=== PATIENT | male | born 1955 | race African-American/Black ===

== ENCOUNTER 2022-10-22 08:31 | Inpatient (IN) | payer MEDICARE ==
[2022-10-22] MEDS ORDERED: Amlodipine 5 MG TAB ONE (08:57)
[2022-10-22] MEDS ORDERED: hydrALAZINE 20 MG/ML VIAL ONE (08:57)
[2022-10-22] MEDS ORDERED: Aspirin Chewable 81 MG TAB ONE (08:57)
[2022-10-22 09:06] LABS: #Monocytes 0.5 thou/uL (0.11-0.59); #Neutrophils 3.2 thou/uL (1.40-6.50); %Basophils 0.7 % (0.0-1.0); %Eosinophils 0.5 % (0.0-10.0); %Lymphocytes 37.3 % (21.0-51.0); %Monocytes 7.8 % (0.0-10.0); %Neutrophils 52.7 % (42.0-75.0); Hematocrit 37.2 % (42.0-52.0); Hemoglobin 12.2 g/dL (14.0-18.0); Mean Corpuscular HGB CONC 32.8 g/dL (32.0-36.0); Mean Corpuscular Hemoglobin 31.4 pg (27.0-31.0); Mean Corpuscular Volume 95.9 fl (78.0-98.0); Mean Platelet Volume 9.5 fL (7.4-10.4); Platelet Count 301 10x3/uL (130-400); RBC Distribution Width 14.4 % (11.5-14.5); Red Blood Cell (RBC) Count 3.88 mill/uL (4.70-6.10)
[2022-10-22] MEDS ORDERED: Carvedilol 25 MG TAB PO SCH (09:15)
[2022-10-22 09:28] LABS: ALT (SGPT) Less than 7 U/L (8-55); AST (SGOT) 11 U/L (5-34); Albumin 3.9 g/dL (3.4-4.8); Alkaline Phosphatase 81 U/L (40-110); Anion Gap 13 mmol/L (10-20); BUN (Urea Nitrogen) 15 mg/dL (8.4-25.7); Bilirubin, Total 0.6 mg/dL (0.2-1.2); Calc. Creatinine Clearance 0 mL/min (70-130); Calcium 9.4 mg/dL (7.8-10.44); Carbon Dioxide 26 mmol/L (23-31); Chloride 105 mmol/L (98-107); Estimated GFR 33; Globulin 3.7 g/dL (2.4-3.5); Glucose 99 mg/dL (80-115); Lipase 12 U/L (8-78); Potassium 3.5 mmol/L (3.5-5.1); Protein, Total 7.6 g/dL (5.8-8.1); Sodium 140 mmol/L (136-145)
[2022-10-22 09:32] LABS: Troponin I 0.098 ng/mL (< 0.028)
[2022-10-22] MEDS ORDERED: Iopamidol-370 76% 500 ML MDV (1 ML CHARGE) ONE (10:07)
[2022-10-22] MEDS ORDERED: Nitroglycerin 0.4 MG TAB (25 Tab Bottle) SL PRN (10:41)
[2022-10-22] MEDS ORDERED: Sodium Chloride 0.9% 1,000 ML IV SCH ×2 (10:45→18:45)
[2022-10-22] MEDS ORDERED: Nitroglycerin 0.4 MG TAB 1 EACH ONE ×2 (11:13→11:30)
[2022-10-22] MEDS ORDERED: Nitroglycerin 2% Ointment 1 INCH/1 GM Packet ONE (11:32)
[2022-10-22] MEDS ORDERED: Labetalol HCl 100 MG/20 ML VIAL SLOW IVP PRN (11:42)
[2022-10-22] MEDS ORDERED: Heparin 25,000 units/D5W 500 ML IVPB SCH (12:15)
[2022-10-22 12:42] LABS: PTT 37.8 sec (22.9-36.1); Prothrombin Time 14.1 sec (12.0-14.7)
[2022-10-22] MEDS ORDERED: Nitroglycerin 2% Ointment 1 INCH/1 GM Packet TOP SCH (14:00)
[2022-10-22] MEDS ORDERED: Heparin 25,000 units/D5W 500 ML ONE (14:08)
[2022-10-22] MEDS: Heparin 10,000 UNITS/ 10 ML VIAL SLOW IVP SCH ×2 (14:15→22:22)
[2022-10-22] MEDS ORDERED: hydrALAZINE 25 MG TAB PO SCH (15:00)
[2022-10-22] MEDS ORDERED: Heparin 5,000 UNITS/ML VIAL SC SCH (15:00)
[2022-10-22 15:40] LABS: Troponin I 0.077 ng/mL (< 0.028)
[2022-10-22] MEDS ORDERED: hydrALAZINE 25 MG TAB ONE (17:25)
[2022-10-22] MEDS: hydrALAZINE 25 MG TAB PO SCH ×2 (17:36→20:14)
[2022-10-22 18:42] VITALS: BMI 26.9
[2022-10-22] MEDS ORDERED: Communication Order-Pharmacy FS SCH (19:00)
[2022-10-22] MEDS: Carvedilol 25 MG TAB PO SCH (19:51)
[2022-10-22] MEDS: Simvastatin 10 MG TAB PO SCH ×2 (20:14→20:17)
[2022-10-22] MEDS: Amlodipine 5 MG TAB PO SCH (20:15)
[2022-10-22] MEDS ORDERED: tiZANidine HCl 4 MG TAB PO SCH (21:00)
[2022-10-22] MEDS ORDERED: Acetaminophen 500 MG TAB PO SCH (21:00)
[2022-10-23] MEDS ORDERED: Acetaminophen 325 MG TAB PO PRN (01:00)
[2022-10-23 03:22] LABS: #Monocytes 0.5 thou/uL (0.11-0.59); #Neutrophils 5.9 thou/uL (1.40-6.50); %Basophils 0.5 % (0.0-1.0); %Eosinophils 0.1 % (0.0-10.0); %Lymphocytes 24.6 % (21.0-51.0); %Monocytes 5.6 % (0.0-10.0); %Neutrophils 68.1 % (42.0-75.0); Hematocrit 34.6 % (42.0-52.0); Hemoglobin 11.1 g/dL (14.0-18.0); Mean Corpuscular HGB CONC 32.1 g/dL (32.0-36.0); Mean Corpuscular Hemoglobin 31.2 pg (27.0-31.0); Mean Corpuscular Volume 97.2 fl (78.0-98.0); Mean Platelet Volume 9.2 fL (7.4-10.4); Platelet Count 282 10x3/uL (130-400); RBC Distribution Width 14.6 % (11.5-14.5); Red Blood Cell (RBC) Count 3.56 mill/uL (4.70-6.10); White Blood Cell (WBC) Count 8.7 10x3/uL (4.8-10.8)
[2022-10-23 03:40] LABS: PTT 207.2 sec (22.9-36.1)
[2022-10-23 03:45] LABS: Anion Gap 10 mmol/L (10-20); BUN (Urea Nitrogen) 16 mg/dL (8.4-25.7); Calc. Creatinine Clearance 40 mL/min (70-130); Calcium 8.7 mg/dL (7.8-10.44); Carbon Dioxide 25 mmol/L (23-31); Cardiac Risk 4.6 (Less than 4.5); Chloride 105 mmol/L (98-107); Cholesterol 152 mg/dl (< 200 Desired); Estimated GFR 36; Glucose 116 mg/dL (80-115); HDL Cholesterol 33 mg/dL (>60 Neg Risk); LDL Cholesterol, Calculated 102 mg/dL; Potassium 3.7 mmol/L (3.5-5.1); Sodium 136 mmol/L (136-145); Triglycerides 85 mg/dL (Less than 150)
[2022-10-23] MEDS: Sodium Chloride 0.9% 1,000 ML IV SCH ×2 (05:12→14:37)
[2022-10-23] MEDS: Carvedilol 25 MG TAB PO SCH (06:15)
[2022-10-23] MEDS: Amlodipine 5 MG TAB PO SCH (06:15)
[2022-10-23] MEDS: hydrALAZINE 25 MG TAB PO SCH (06:15)
[2022-10-23] MEDS ORDERED: Clopidogrel Bisulfate 75 MG TAB PO SCH (09:00)
[2022-10-23] MEDS ORDERED: Isosorbide Dinitrate 20 MG TAB PO SCH (09:00)
[2022-10-23 12:59] VITALS: BP 167/77; TEMP 98.6
== END 2022-10-23 15:30 | disposition home or self-care (01) | DRG 313 ==
LOC: ERS 08:31 → ERHOLD 11:24 → 2SW 18:28 → OBSVTOIN 10-23 11:16
PROVIDERS: ADMIT Family Medicine; ATTEND Internal Medicine
DX: R07.89 Other chest pain (principal); I31.39 Other pericardial effusion (noninflammatory); I42.8 Other cardiomyopathies; N17.9 Acute kidney failure, unspecified; I12.9 Hypertensive chronic kidney disease with stage 1 through stage 4 chronic kidney disease, or unspecified chronic kidney disease; N18.30 Chronic kidney disease, stage 3 unspecified; I16.0 Hypertensive urgency; I73.9 Peripheral vascular disease, unspecified; E78.5 Hyperlipidemia, unspecified; Z79.899 Other long term (current) drug therapy; Z86.73 Personal history of transient ischemic attack (TIA), and cerebral infarction without residual deficits; Z98.890 Other specified postprocedural states; I25.2 Old myocardial infarction
CPT/HCPCS: 36415; 71045; 71275; 80048; 80053; 80061; 83690; 83880; 84484; 85025; 85610; 85730; 93005; 93306; 94760; J0360; J1644; J7050; Q9967

== ENCOUNTER 2023-08-14 18:52 | Inpatient (IN) | payer MEDICARE ==
[~2023-08-14 18:52] MED LIST: Iopamidol-370 76% 500 ML MDV (1 ML CHARGE) ONE
[2023-08-14 19:31] LABS: Hemoglobin 10.6 g/dL (14.0-18.0); Mean Corpuscular HGB CONC 33.1 g/dL (32.0-36.0); Mean Corpuscular Hemoglobin 31.5 pg (27.0-31.0); Mean Corpuscular Volume 95.2 fL (78.0-98.0); Mean Platelet Volume 10.6 fL (7.4-10.4); Platelet Count 232 10x3/uL (130-400); Red Blood Cell (RBC) Count 3.36 mill/uL (4.70-6.10)
[2023-08-14 19:46] LABS: ALT (SGPT) 6 U/L (8-55); AST (SGOT) 37 U/L (5-34); Albumin 3.1 g/dL (3.4-4.8); Alkaline Phosphatase 55 U/L (40-110); Anion Gap 14 mmol/L (10-20); BUN (Urea Nitrogen) 39 mg/dL (8.4-25.7); Bilirubin, Total 0.4 mg/dL (0.2-1.2); Calc. Creatinine Clearance 0 mL/min (70-130); Calcium 8.9 mg/dL (7.8-10.44); Carbon Dioxide 23 mmol/L (23-31); Chloride 103 mmol/L (98-107); Estimated GFR 18; Globulin 5.2 g/dL (2.4-3.5); Glucose 140 mg/dL (80-115); Potassium 5.5 mmol/L (3.5-5.1); Protein, Total 8.3 g/dL (5.8-8.1); Sodium 134 mmol/L (136-145)
[2023-08-14 19:49] LABS: Troponin I 0.053 ng/mL (< 0.028)
[2023-08-14 19:51] LABS: Band 6 % (5-11); Lymphocytes 11 % (21-51); Monocytes 6 % (0-10); Myelocyte 1 % (0-0); Neutrophil 72 % (42-75); Platelet Adequacy Comment Platelets Normal; Polychromasia SLIGHT = 2-3 cells HPF (0-2); Reactive Lymphocytes 3 % (0-10)
[2023-08-14] MEDS ORDERED: Tenecteplase 50 MG ONE (19:54)
[2023-08-14] MEDS ORDERED: Labetalol HCl 100 MG/20 ML VIAL ONE (19:54)
[2023-08-14 20:07] LABS: INR-International Normal Ratio 1.2; PTT 36.3 sec (22.9-36.1); Prothrombin Time 14.9 sec (12.0-14.7)
[2023-08-14] MEDS ORDERED: niCARdipine 25 MG/10 ML SDV ONE (20:50)
[2023-08-14 21:00] LABS: Magnesium 1.9 mg/dL (1.6-2.6)
[2023-08-14] MEDS ORDERED: Ondansetron PF 4 MG/2 ML Vial IVP PRN (21:34)
[2023-08-14] MEDS ORDERED: Labetalol HCl 100 MG/20 ML VIAL SLOW IVP PRN (21:35)
[2023-08-14] MEDS ORDERED: hydrALAZINE 20 MG/ML VIAL SLOW IVP PRN (21:35)
[2023-08-14] MEDS ORDERED: NO ANTITHROMBOTICS FS SCH (21:35)
[2023-08-14 22:27] LABS: Bacteria/HPF None Seen HPF (None Seen); Bilirubin Negative (Negative); Blood, Urine 1+ (Negative); CAUTI Indications for Culture Dysuria,urgency,freq; Clarity Clear (Clear); Glucose, Urine (Dipstick) Normal (Negative); Ketone, Urine Negative (Negative); Leukocyte 250 Leu/uL (Negative); Nitrite Negative (Negative); Protein, Urine (Dipstick) 30 mg/dL (Neg-Trace); RBC/HPF 0-3 HPF (0-3); Squamous Epithelial 0-3 HPF (0-3); WBC/HPF 21-50 HPF (0-3)
[2023-08-14 22:29] LABS: Urine Culture Reflex Yes Yes
[2023-08-15] MEDS: niCARdipine 25 MG in Sodium Chloride 0.9% 250 ML 250 ML IVPB PRN (01:15)
[2023-08-15] MEDS: Sodium Chloride 0.9% 1,000 ML IV SCH (01:59)
[2023-08-15 02:17] VITALS: BMI 31.1
[2023-08-15] MEDS: cefTRIAXone\\ROCEPHIN 1 GM in Sodium Chloride 0.9% 100 ML IVPB SCH (03:40)
[2023-08-15] MEDS: Atorvastatin Calcium 40 MG TAB PO SCH (20:49)
[2023-08-15 23:38] LABS: Hematocrit 35.6 % (42.0-52.0); Hemoglobin 11.3 g/dL (14.0-18.0); Mean Corpuscular HGB CONC 31.7 g/dL (32.0-36.0); Mean Corpuscular Hemoglobin 30.9 pg (27.0-31.0); Mean Corpuscular Volume 97.3 fL (78.0-98.0); Mean Platelet Volume 9.7 fL (7.4-10.4); Platelet Count 239 10x3/uL (130-400); RBC Distribution Width 14.3 % (11.5-14.5); Red Blood Cell (RBC) Count 3.66 mill/uL (4.70-6.10)
[2023-08-16 00:02] LABS: Hemoglobin A1c 5.2 % (4.0-6.0)
[2023-08-16 00:04] LABS: Anion Gap 15 mmol/L (10-20); BUN (Urea Nitrogen) 23 mg/dL (8.4-25.7); Calc. Creatinine Clearance 41 mL/min (70-130); Calcium 8.9 mg/dL (7.8-10.44); Carbon Dioxide 21 mmol/L (23-31); Chloride 107 mmol/L (98-107); Estimated GFR 33; Glucose 91 mg/dL (80-115); Lymphocytes 19 % (21-51); Metamyelocyte 1 % (0-0); Monocytes 6 % (0-10); Myelocyte 1 % (0-0); Neutrophil 73 % (42-75); Platelet Adequacy Comment Platelets Normal; Potassium 3.9 mmol/L (3.5-5.1); RBC Morphology Within Normal Limits; Smudge Cells 14.7 %; Sodium 139 mmol/L (136-145)
[2023-08-16 04:13] LABS: Hematocrit 35.4 % (42.0-52.0); Hemoglobin 11.4 g/dL (14.0-18.0); Mean Corpuscular HGB CONC 32.2 g/dL (32.0-36.0); Mean Corpuscular Hemoglobin 31.5 pg (27.0-31.0); Mean Corpuscular Volume 97.8 fL (78.0-98.0); Platelet Count 221 10x3/uL (130-400); RBC Distribution Width 14.3 % (11.5-14.5); Red Blood Cell (RBC) Count 3.62 mill/uL (4.70-6.10)
[2023-08-16 04:18] LABS: Anion Gap 12 mmol/L (10-20); BUN (Urea Nitrogen) 22 mg/dL (8.4-25.7); Calc. Creatinine Clearance 46 mL/min (70-130); Calcium 8.9 mg/dL (7.8-10.44); Carbon Dioxide 23 mmol/L (23-31); Cardiac Risk 6.1 (Less than 4.5); Chloride 107 mmol/L (98-107); Cholesterol 122 mg/dl (< 200 Desired); Estimated GFR 38; Glucose 90 mg/dL (80-115); HDL Cholesterol 20 mg/dL (>60 Neg Risk); LDL Cholesterol, Calculated 79 mg/dL; Potassium 4.2 mmol/L (3.5-5.1); Sodium 138 mmol/L (136-145); Triglycerides 116 mg/dL (Less than 150)
[2023-08-16 04:33] LABS: Band 1 % (5-11); Lymphocytes 18 % (21-51); Metamyelocyte 1 % (0-0); Monocytes 11 % (0-10); Myelocyte 1 % (0-0); Neutrophil 68 % (42-75); Platelet Adequacy Comment Platelets Normal; RBC Morphology Within Normal Limits
[2023-08-16] MEDS: Carvedilol 25 MG TAB PO SCH (08:30)
[2023-08-16] MEDS: hydrALAZINE 25 MG TAB PO SCH (08:30)
[2023-08-16] MEDS: Aspirin 81 mg Enteric Coated Tablet PO SCH (09:54)
[2023-08-16] MEDS: Acetaminophen 325 MG TAB PO PRN (11:45)
[2023-08-17 06:31] LABS: Hematocrit 33.1 % (42.0-52.0); Hemoglobin 10.6 g/dL (14.0-18.0); Mean Corpuscular Hemoglobin 31.3 pg (27.0-31.0); Mean Corpuscular Volume 97.6 fL (78.0-98.0); Mean Platelet Volume 9.5 fL (7.4-10.4); Platelet Count 259 10x3/uL (130-400); RBC Distribution Width 14.6 % (11.5-14.5); Red Blood Cell (RBC) Count 3.39 mill/uL (4.70-6.10)
[2023-08-17 06:38] LABS: Anion Gap 18 mmol/L (10-20); BUN (Urea Nitrogen) 30 mg/dL (8.4-25.7); Calc. Creatinine Clearance 35 mL/min (70-130); Calcium 8.8 mg/dL (7.8-10.44); Carbon Dioxide 20 mmol/L (23-31); Chloride 105 mmol/L (98-107); Estimated GFR 27; Glucose 82 mg/dL (80-115); Potassium 4.5 mmol/L (3.5-5.1); Sodium 138 mmol/L (136-145)
[2023-08-17 07:33] LABS: Band 2 % (5-11); Lymphocytes 12 % (21-51); Monocytes 4 % (0-10); Neutrophil 78 % (42-75); Nucleated RBC (Manual Ct) 1 % (0); Platelet Adequacy Comment Platelets Normal; RBC Morphology Within Normal Limits; Reactive Lymphocytes 3 % (0-10)
[2023-08-17 08:09] VITALS: BP 169/79; TEMP 98.8
[2023-08-17] MEDS ORDERED: Non-Formulary Item 1 EACH (Sacubitril/Valsartan [Entresto 97 Mg-103 Mg Tablet] 1 EACH Tab PO SCH (09:00)
[2023-08-17] MEDS: LevoFLOXacin 500 MG TAB PO SCH (09:26)
[2023-08-17] MEDS: Sacubitril 49 MG/Valsartan 51 MG TABLET PO SCH (09:28)
[2023-08-18] MEDS ORDERED: LevoFLOXacin 500 MG TAB PO SCH (06:00)
[2023-08-18] MEDS ORDERED: LevoFLOXacin 250 MG TAB PO SCH (06:00)
== END 2023-08-17 15:15 | disposition home or self-care (01) | DRG 62 ==
LOC: ERS 18:52 → CCU 21:18 → 2SE 08-16 16:31
PROVIDERS: ADMIT Internal Medicine; ATTEND Internal Medicine
DX: I63.9 Cerebral infarction, unspecified (principal); I13.0 Hypertensive heart and chronic kidney disease with heart failure and stage 1 through stage 4 chronic kidney disease, or unspecified chronic kidney disease; I50.32 Chronic diastolic (congestive) heart failure; N17.9 Acute kidney failure, unspecified; N39.0 Urinary tract infection, site not specified; Z79.899 Other long term (current) drug therapy; Z79.82 Long term (current) use of aspirin; D63.1 Anemia in chronic kidney disease; E87.5 Hyperkalemia; Z98.890 Other specified postprocedural states; N18.32 Chronic kidney disease, stage 3b; I16.0 Hypertensive urgency
CPT/HCPCS: 36415; 36416; 70450; 70496; 70498; 70551; 71045; 80048; 80053; 80061; 81001; 83036; 83735; 84443; 84484; 85025; 85610; 85730; 87077; 87086; 87186; 93005; 93306; 94760; 96361; 96365; 96375; J0696; J3101; J3490; J7050; Q9967